=== PATIENT | male | born 1995 | race African-American/Black ===

== ENCOUNTER 2022-04-05 15:55 | Emergency (ER) | payer OTHER ==
[~2022-04-05] VITALS: Ht 172.7 cm; Wt 91.0 kg
[2022-04-05 16:01] VITALS: BP 136/80
[2022-04-05] MEDS: ACETAMINOPHEN 325MG TABLET PO ONE (17:00)
== END 2022-04-05 18:06 ==
LOC: ER 15:55
DX: M25.512 Pain in left shoulder (principal); V49.9XXA Car occupant (driver) (passenger) injured in unspecified traffic accident, initial encounter; Y93.89 Activity, other specified; Y92.89 Other specified places as the place of occurrence of the external cause; Y99.8 Other external cause status
CPT/HCPCS: 73030; 99283

== ENCOUNTER 2023-12-04 23:58 | Emergency (ER) | payer MEDICAID, OTHER ==
[~2023-12-04] VITALS: Ht 172.7 cm; Wt 110.0 kg
[2023-12-05 00:14] VITALS: O2SAT 99
[2023-12-05] MEDS: ONDANSETRON HCL 4MG/2ML INJ IV ONE ×2 (00:30→02:13)
[2023-12-05] MEDS: SODIUM CHLORIDE 0.9% 500 ML IV ONE (00:30)
[2023-12-05 00:31] LABS: BASOPHILS % 0.5 % (0.0-2.0); EOSINOPHILS % 0.2 % (0.0-5.0); HEMATOCRIT. 45.8 % (42.0-52.0); LYMPHOCYTES % 9.1 % (20.0-50.0); MEAN CORPUSCULAR HEMOGLOBIN 30.1 pg (28.0-32.0); MEAN CORPUSCULAR HGB CONC 34.8 g/dL (31.0-37.0); MEAN CORPUSCULAR VOLUME 86.4 fL (80.0-94.0); MEAN PLATELET VOLUME 8.2 fl (7.4-10.4); MONOCYTES % 4.4 % (2.0-8.0); NEUTROPHILS % 85.8 % (40.0-76.0); PLATELET 348 x1000/uL (130-400); RED CELL DISTRIBUTION WIDTH 13.9 % (11.6-14.6); WHITE BLOOD COUNT 16.1 x1000/uL (4.5-11.0)
[2023-12-05 00:40] LABS: CARBON DIOXIDE 22 mEq/L (21-32); CHLORIDE 108 mEq/L (98-107); POTASSIUM 3.5 mEq/L (3.5-5.1); SODIUM 144 mEq/L (136-145)
[2023-12-05 00:41] LABS: CALCIUM 11.1 mg/dL (8.7-10.4)
[2023-12-05 00:45] LABS: CREATININE 1.5 mg/dL (0.6-1.3)
[2023-12-05 00:46] LABS: GLUCOSE 154 mg/dL (70-105); UREA NITROGEN BLOOD 24 mg/dL (9-23)
[2023-12-05 00:47] LABS: ALANINE AMINOTRANSFERASE 39 IU/L (10-49)
[2023-12-05 00:48] LABS: ALBUMIN 5.9 g/dL (3.2-4.8); ASPARTATE AMINOTRANSFERASE 22 IU/L (<34); BILIRUBIN DIRECT 0.2 mg/dL (<=3.0); BILIRUBIN TOTAL 0.7 mg/dL (0.1-1.0); LACTIC ACID 3.4 mmol/L (0.4-2.0); PROTEIN TOTAL 9.5 g/dL (6.0-8.3)
[2023-12-05 00:51] LABS: ETHANOL BLOOD < 10 mg/dL (<10)
[2023-12-05] MEDS: ACETAMINOPHEN 1000MG/100ML 100 ML IV ONE (01:34)
[2023-12-05 01:36] LABS: PROTHROMBIN TIME 10.9 sec (9.6-11.0)
[2023-12-05 02:11] LABS: AMMONIA < 17 uMol/L (<32)
[2023-12-05] MEDS: MORPHINE SULFATE 4 MG/ML INJ (FOR IV/IM USE) IV ONE (02:13)
[2023-12-05] MEDS: PANTOPRAZOLE SODIUM 40 MG/VIAL IV ONE (02:13)
[2023-12-05 03:15] VITALS: BP 186/88; PULSE 88; RESP 14; TEMP 37.05852; O2SAT 100
[2023-12-08] MEDS ORDERED: SUCR1TAB30 PO (16:28)
[2023-12-08] MEDS ORDERED: PANT40TA51 PO (16:28)
[2023-12-08] MEDS ORDERED: ONDA4TAB50 MT (16:28)
== END 2023-12-05 03:38 | disposition left against medical advice (07) ==
LOC: ER 23:58
DX: N28.9 Disorder of kidney and ureter, unspecified (principal); E87.20 Acidosis, unspecified
CPT/HCPCS: 99285; 80076; 80048; 80320; 82140; 83605; 83690; 85025; 85610; 36415; 96361; 96365; 96375; 96376; J2405; J2470; J2270; J7040; Z7610 ×2; G0480; J0131

== ENCOUNTER 2023-12-14 13:41 | Emergency (ER) | payer MEDICAID ==
[~2023-12-14] VITALS: Ht 162.6 cm; Wt 109.0 kg
[~2023-12-14 13:41] MED LIST: ONDA4TAB50 MT; PANT40TA51 PO; SUCR1TAB30 PO
[2023-12-14 13:57] VITALS: BP 120/78; PULSE 98; RESP 16; TEMP 98.2; O2SAT 98
== END 2023-12-14 15:19 | disposition left against medical advice (07) ==
LOC: ER 13:41
DX: M54.6 Pain in thoracic spine (principal); Z53.21 Procedure and treatment not carried out due to patient leaving prior to being seen by health care provider